=== PATIENT | female | born 1960 | race Two or more races ===

== ENCOUNTER 2025-03-25 09:39 | Emergency (ER) | payer MEDICARE, MEDICAID, SELFPAY ==
[2025-03-25 09:40] VITALS: BMI 25.0
[2025-03-25 09:55] VITALS: BP 155/76; PULSE 63; RESP 18; TEMP 37.1; O2SAT 99; BMI 24.6
--- NOTE | 2025-03-25 09:59 | XR_ITS ---
Examination: CT abdomen and pelvis without contrast. Coronal 3-D reconstructions. Sagittal 2-D reconstructions. Date and time of exam: 03/25/2025 at 10:42 a.m. CTDI: vol (mGy): 6.48 DLP: (mGycm): 281 Indication: Lower back pain, painful urination for 6 days Technique: Axial images of the abdomen have been obtained, 3 mm slice thickness Intravenous contrast material has not been administered. Low dose protocols were performed. One or more of the following dose reduction techniques were used; automated exposure control, adjustment of the mA and/or KV according to patient size, use of iterative reconstruction technique. Findings: On this noncontrast study I do not see any abnormalities in the liver or spleen pancreas or kidneys. There is a 1.7 cm diameter cyst in the left and renal gland. Right adrenal gland appears normal. The para-aortic region and retroperitoneum appear normal. The a sending and transverse colon is are mildly distended with fecal material. I think that I can see a small portion of the appendix which appears normal. The small bowel loops are of normal caliber. Within the bones there is moderate degenerative disc disease seen at L4-L5 most prominently on the right side with more prominent disc narrowing and osteophytes on the right side there is a diffuse broad disc protrusion of moderate portions which is identified at this level. This encroaches moderately on the right neuroforamen at this level but there is still visible foraminal fat surrounding the right L4 nerve. At L5-S1 there is a broad-based midline disc protrusion of mild proportions. IMPRESSION: 1. There is a 1.7 cm diameter small cyst in the left adrenal gland 2 other than some mild changes of DJD in the lumbosacral spine the study is otherwise entirely normal
--- NOTE | 2025-03-25 09:59 | PD.EDBACK ---
ED Back Injury Pain RME/HPI General Chief Complaint: Back Pain/Injury Stated Complaint: MID LOWER BACK PAIN X2 WEEKS Time Seen by Provider: 03/25/25 09:51 Source: patient Arrival date/time: 03/25/25 09:39 65-year-old female with a history of hypertension, type 2 diabetes, presents to the emergency room with a chief complaint of bilateral lower flank pain x 2 weeks Mode of arrival: ambulatory Limitations: no limitations Related Data Home Medications ?Medication ?Instructions ?Recorded ?Confirmed lisinopril 20 mg tablet 40 mg PO DAILY ##0 02/25/13 07/22/19 metformin 500 mg tablet 500 mg PO BID 09/29/17 07/22/19 naproxen 500 mg tablet 500 mg PO BID PRN Pain 09/29/17 07/22/19 Previous Rx's ?Medication ?Instructions ?Recorded ibuprofen 800 mg tablet 800 mg PO Q8H #30 tabs 03/25/25 Allergies Allergy/AdvReac Type Severity Reaction Status Date / Time No Known Allergies Allergy Verified 03/25/25 09:42 Review of Systems Review of Systems Systems Reviewed: All systems reviewed, normal except as documented Constitutional Constitutional: Reports system reviewed and no additional complaints, except as documented, Denies fatigue, Denies fever(s), Denies headache(s) and Denies weakness Eyes Eyes: Reports system reviewed and no additional complaints, except as documented, Denies blurry vision and Denies change in vision ENT Ears, Nose, Mouth, and Throat: Reports system reviewed and no additional complaints, except as documented, Denies otalgia, Denies headache(s), Denies nasal congestion, Denies throat swelling and Denies vertigo Cardiovascular Cardiovascular: Reports system reviewed and no additional complaints, except as documented, Denies chest pain, Denies dyspnea and Denies dyspnea on exertion Respiratory Respiratory: Reports system reviewed and no additional complaints, except as documented, Denies chest congestion, Denies cough, Denies dyspnea, Denies dyspnea on exertion and Denies wheezing Gastrointestinal Gastrointestinal: Reports system reviewed and no additional complaints, except as documented, Denies abdominal pain, Denies cramping, Denies nausea and Denies vomiting Genitourinary Genitourinary: Reports system reviewed and no additional complaints, except as documented Musculoskeletal Musculoskeletal: Reports system reviewed and no additional complaints, except as documented, Reports arthralgias and Reports back pain Integumentary/Breasts Skin/Breast: Reports system reviewed and no additional complaints, except as documented and Denies wounds Neurologic Neurologic: Reports system reviewed and no additional complaints, except as documented, Denies confusion, Denies headache(s), Denies lack of coordination, Denies vertigo and Denies weakness Psychiatric Psychiatric: Reports system reviewed and no additional complaints, except as documented, Denies anxiety, Denies confusion, Denies depression, Denies paranoia, Denies suicidal ideation and Denies tactile hallucinations Endocrine Endocrine: Reports system reviewed and no additional complaints, except as documented and Denies fatigue Hematologic/Lymphatic Hematologic/Lymphatic: Reports system reviewed and no additional complaints, except as documented and Denies lymphadenopathy Allergic/Immunologic Allergic/Immunologic: Reports system reviewed and no additional complaints, except as documented, Denies throat swelling, Denies urticaria and Denies wheezing Past Medical History Past Medical History NEUROLOGIC: Negative Neurological Disorders or Seizures CARDIAC: Positive Cardiac Disorders and Hypertension; Negative Congestive Heart Failure RESPIRATORY: Negative Chronic Obstructive Pulmonary Disease (COPD) GASTROINTESTINAL: Positive Gastrointestinal Disorders (GASTRITIS) GENITOURINARY: Positive Genitourinary Disorders (CYST KIDNEY); Negative Renal Disease MUSCULOSKELETAL: Negative Musculoskeletal Disorders ENDOCRINE: Positive Endocrine Disorders, Diabetes Mellitus Type 2 and Adrenal Disease (LEFT ADRENAL GLAND BENIGN NEOPLASM); Negative Diabetes Mellitus Type 1 HEMATOLOGIC: Negative Blood Disorders OTHER HISTORY: Negative Autoimmune Disease, Blood Transfusions, Blood Transfusion Reaction or Anesthesia Reactions Family History FAMILY HISTORY: Positive Family Cardiac Disorders (FATHER- FROM HEART ISSUES) Surgical History SURGICAL: Positive Section (x4) Social History SMOKING STATUS: Never smoker ED Exam General Limitations: Present no limitations General appearance: Present alert and in no apparent distress Head Head exam: Present atraumatic, normocephalic and normal inspection Eye Eye exam: Present normal appearance, PERRL and EOMI ENT ENT exam: Present normal exam, normal oropharynx and mucous membranes moist Neck Neck exam: Present normal inspection, full ROM and trachea midline Chest Chest inspection: Present normal inspection and symmetric chest wall rise Respiratory Respiratory exam: Present normal lung sounds bilaterally Cardiovascular Cardiovascular exam: Present regular rate, normal rhythm and normal heart sounds Abdominal Exam Abdominal exam: Present soft and normal bowel sounds Extremities Exam Extremities exam: Present normal inspection and full ROM Back Exam Back exam: Present normal inspection, full ROM, CVA tenderness (R), CVA tenderness (L) and vertebral tenderness Neurological Exam Neurological exam: Present alert, oriented X3 and CN II-XII intact Psychiatric Psychiatric exam: Present normal affect and normal mood Skin Skin exam: Present warm, dry, intact and normal color Course Quality Measures none Orders Category Date Time Status CT abdomen pelvis wo con Stat Exams 03/25/25 09:59 Completed CBC Stat Lab 03/25/25 10:46 Completed CMP [Comprehensive Metabolic Panel] Stat Lab 03/25/25 10:46 Completed Lipase Stat Lab 03/25/25 10:46 Completed UA [Urinalysis] Stat Lab 03/25/25 11:20 Completed Urine Culture Stat Lab 03/25/25 11:20 Received Vital Signs Vital signs: Vital Signs Temperature 98.7 F 03/25/25 09:55 Pulse Rate 63 03/25/25 09:55 Respiratory Rate 18 03/25/25 09:55 Blood Pressure 155/76 H 03/25/25 09:55 Pulse Oximetry (%) 99 03/25/25 09:55 Oxygen Delivery Method Room Air 03/25/25 09:55 Back Pain / Injury MDM Narrative MDM Narrative:: 65-year-old female with a history of hypertension, type 2 diabetes, presents to the emergency room with a chief complaint of bilateral lower flank pain x 2 weeks Patient is hemodynamically stable and in no apparent distress Physical examination shows bilateral CVA tenderness with palpation. The patient also has some bilateral lower abdominal tenderness CT of the abdomen and pelvis was negative for any acute findings. There is no ureteral calculi or any obstruction. There is no UTI CBC CMP are within normal limits Patient was discharged and educated to follow-up with primary care provider in the next 24 to 48 hours and return to the emergency room for any evidence of worsening signs or symptoms Patient data External records reviewed:: [facility] previous records Clinical information provided by:: patient Social determinants that could affect healthcare access:: none Patient has the following chronic illnesses:: No chronic How is presenting disease/condition affected by chronic disease/condition?: no chronic disease Evaluation data The following diagnostics were reviewed and interpreted by me:: lab results and radiology exam(s) Lab and/or radiology exams considered but not ordered:: Labs and radiology exams considered and ordered Interpretation Summary: CT abdomen and pelvis-Findings: On this noncontrast study I do not see any abnormalities in the liver or spleen pancreas or kidneys. There is a 1.7 cm diameter cyst in the left and renal gland. Right adrenal gland appears normal. The para-aortic region and retroperitoneum appear normal. The a sending and transverse colon is are mildly distended with fecal material. I think that I can see a small portion of the appendix which appears normal. The small bowel loops are of normal caliber. Within the bones there is moderate degenerative disc disease seen at L4-L5 most prominently on the right side with more prominent disc narrowing and osteophytes on the right side there is a diffuse broad disc protrusion of moderate portions which is identified at this level. This encroaches moderately on the right neuroforamen at this level but there is still visible foraminal fat surrounding the right L4 nerve. At L5-S1 there is a broad-based midline disc protrusion of mild proportions. IMPRESSION: 1. There is a 1.7 cm diameter small cyst in the left adrenal gland 2 other than some mild changes of DJD in the lumbosacral spine the study is otherwise entirely normal Medications / Prescriptions Medications or Prescriptions considered but not ordered:: No medication given Medication administrations:: No medication given Consultations Consultation(s) initiated? (list below): No Diagnosis Differential diagnosis back pain/injury: lumbar radiculopathy, strain of lumbar region, thoracic back pain and discitis Most likely diagnosis given after review of the tests above:: Strain of lumbar region Admission Indicated Admission indicated?: not indicated Admission Request Was there a request for admission?: No Disposition Plan Disposition Plan: Discharge Discharge Attestation Discharge Attestation: The patient and all family members were given an opportunity to ask questions and understood the discharge instructions. Discharge instructions specifically effects, indications for sooner follow up or return to the emergency department, and the expected course of current diagnosis. Patient condition: Stable Discharge Plan Plan Patient Disposition: HOME (Self Care) Discharge Disposition comment: Stable Prescriptions/Referrals Prescriptions/Med Rec: New ibuprofen 800 mg tablet 800 mg PO Q8H Qty: 30 0RF No Action lisinopril 20 MG tablet 40 mg PO DAILY Qty: 0 metformin 500 mg Tablet 500 mg PO BID naproxen 500 mg Tablet 500 mg PO BID PRN (Reason: Pain) Referrals: Mallika Carrasquillo FNP [Primary Care Provider] - In 1 week Problem List Clinical Impression: Strain of lumbar region Patient/Caregiver Discharge Instructions Education Materials: ED Back Sprain/Strain Additional Instructions: Por favor, comun?quese con [facility] m?dico de cabecera en las pr?ximas 24 a 48 horas. Winn tomograf?a computarizada de abdomen y pelvis se complet? y no revel? c?lculos renales ni hallazgos agudos. Si presenta alg?n signo o s?ntoma que empeore, regrese a la lakeisha de emergencias de inmediato. Print Language: Citizen Of [place] Stand Alone Forms: Patricia Award Info., Work/School Release, Patient Portal Info Letter PA/[employer] Supervising Physician PA/[employer] Supervising Physician: Dr. Rod
[2025-03-25 11:38] LABS: Alanine Aminotransferase 12 U/L (10-49); Albumin, Serum 4.8 gm/dL (3.4-4.8); Albumin/Globulin Ratio 1.4 (1.2-2.2); Alkaline Phosphatase 76 U/L (46-116); Anion Gap 11 (7-16); Aspartate Amino Transferase 24 U/L (0-34); BUN/Creatinine Ratio 17 Ratio (12-20); Bilirubin,Total 0.7 mg/dL (0.3-1.2); Blood Urea Nitrogen 20 mg/dL (9-23); Calcium 9.4 mg/dL (8.3-10.6); Calcium (Corrected) 9.4 mg/dL (8.5-10.1); Carbon Dioxide 29.3 mMol/L (20.0-31.0); Chloride 103 mMol/L (98-107); Creatinine (Component) 1.2 mg/dL (0.6-1.3); Estimated Creatinine Clearance 33.5 mL/min (>60); Globulin 3.4 gm/dL (2.3-3.5); Glucose 133 mg/dL (74-106); Lipase 62 U/L (12-53); Osmolality,Calculated 289 (275-295); Potassium 4.4 mMol/L (3.4-5.1); Sodium 143 mMol/L (136-145); Total Protein 8.2 gm/dL (5.7-8.2); eGFR 50 See Note
[2025-03-25 11:42] LABS: Basophils # (Auto) 0.1 Thou/mm3 (0.0-0.2); Basophils % (Auto) 1 % (0-2.5); Eosinophils # (Auto) 0.2 Thou/mm3 (0.0-0.5); Eosinophils % (Auto) 2 % (0-10); Hematocrit 36.1 % (36.0-46.0); Hemoglobin 11.7 g/dL (12.0-16.0); Immature Granulocytes Auto 0.02 Thou/mm3 (0.00-0.00); Lymphocytes # (Auto) 2.3 Thou/mm3 (1.0-4.8); Lymphocytes % (Auto) 27 % (10-50); Mean Corpuscular HGB Conc 32.4 g/dl (31.0-37.0); Mean Corpuscular Hemoglobin 31.2 pg (25.0-35.0); Mean Corpuscular Volume 96 fL (80-100); Monocytes # (Auto) 0.6 Thou/mm3 (0.0-0.8); Monocytes % (Auto) 7 % (0-12); Neutrophils # (Auto) 5.4 Thou/mm3 (1.8-7.7); Neutrophils % (Auto) 64 % (37-80); Nucleated Red Blood Cell # 0.00 Thou/mm3 (0.00-0.00); Nucleated Red Blood Cell % 0 /100 WBC (0); Platelet Count 248 Thou/mm3 (140-440); RDW Standard Deviation 42.6 fL (36.4-46.3); Red Blood Count 3.75 Miln/mm3 (4.00-5.20); White Blood Count 8.5 Thou/mm3 (3.6-11.0)
[2025-03-25 11:47] LABS: Collection Type, Urine Clean Catch
[2025-03-25 11:53] LABS: Bilirubin,Urine Negative (Negative); Blood,Urine 1+ (Negative); Clarity,Urine Clear (Clear/Hazy); Color,Urine Lt-Yellow (Lt Yel-Yel); Glucose, Urine Negative (Negative); Ketones,Urine Negative (Negative); Leukocyte Esterase,Urine Negative (Negative); Nitrite,Urine Negative (Negative); PH,Urine 6.0 (5.0-7.0); Protein,Urine Negative (Neg - Trace); RBC,Urine 3 /hpf (0-3); Specific Gravity,Urine 1.010 (1.001-1.035); Squamous Epithelial Cell,Urine < 1 /hpf (0-5); Urobilinogen,Urine Negative mg/dL (0.0-1.0); WBC,Urine < 1 /hpf (0-5)
== END 2025-03-25 14:41 | disposition home or self-care (01) ==
PROVIDERS: Nurse Practitioner Family; Emergency Provider Emergency Medicine; PCP Nurse Practitioner Family
DX: S39.012A Strain of muscle, fascia and tendon of lower back, initial encounter (principal); X58.XXXA Exposure to other specified factors, initial encounter; I10 Essential (primary) hypertension; E11.9 Type 2 diabetes mellitus without complications; M47.817 Spondylosis without myelopathy or radiculopathy, lumbosacral region; E27.8 Other specified disorders of adrenal gland
CPT/HCPCS: 36415; 74176; 80053; 81001; 83690; 85025; 87086; 99283